=== PATIENT | female | born 1940 | race African-American/Black ===

== ENCOUNTER 2019-07-19 22:38 | Inpatient (IN) | payer MEDICARE, MEDICAID ==
[~2019-07-19] VITALS: Ht 162.6 cm; Wt 64.0 kg
[2019-07-19 20:20] VITALS: BP 138/82
[~2019-07-19 22:38] MED LIST: AMLO10TA80
[2019-07-19] MEDS ORDERED: DEXTROSE 50% WATER 50ML SYRINGE IV PRN (23:00)
[2019-07-19] MEDS ORDERED: ONDANSETRON HCL 4MG/2ML INJ IV PRN (23:15)
[2019-07-19] MEDS ORDERED: CLONIDINE 0.1MG TABLET PO PRN (23:15)
[2019-07-19] MEDS ORDERED: ACETAMINOPHEN 325MG TABLET PO PRN (23:15)
[2019-07-19] MEDS ORDERED: ALBUTEROL (0.083%) 2.5MG/3ML NEB HHN PRN (23:15)
[2019-07-19 23:22] VITALS: BP 138/82
[2019-07-19] MEDS ORDERED: CARV6.2548 MT (23:44)
[2019-07-19] MEDS ORDERED: FAMO20TA8 PO (23:44)
[2019-07-19] MEDS ORDERED: CLON0.1T PO (23:44)
[2019-07-19] MEDS ORDERED: HYDR-4134 PO (23:44)
[2019-07-19] MEDS ORDERED: ALBU05 IH (23:44)
[2019-07-19] MEDS ORDERED: ACET-2853 PO (23:44)
[2019-07-19] MEDS ORDERED: SUMA25TA9 PO (23:44)
[2019-07-20] VITALS (12 sets, daily range): BP systolic 115–149; BP diastolic 70–89
[2019-07-20] MEDS ORDERED: SUMATRIPTAN SUCCINATE 25MG TABLET PO PRN (05:00)
[2019-07-20] MEDS: BLOOD SUGAR DIAGNOSTIC STRIP TEST SCH ×5 (06:01→23:15)
[2019-07-20 06:43] LABS: BASOPHILS % 0.7 % (0.0-2.0); EOSINOPHILS % 1.9 % (0.0-5.0); HEMATOCRIT. 32.9 % (36.0-48.0); HEMOGLOBIN. 10.9 g/dL (12.0-16.0); LYMPHOCYTES % 11.3 % (20.0-50.0); MEAN CORPUSCULAR HEMOGLOBIN 29.8 pg (28.0-32.0); MEAN CORPUSCULAR VOLUME 89.8 fL (81.0-99.0); MEAN PLATELET VOLUME 9.7 fl (7.4-10.4); MONOCYTES % 11.1 % (2.0-8.0); PLATELET 335 x1000/uL (130-400); RED BLOOD CELL COUNT 3.67 mill/uL (4.2-5.4); RED CELL DISTRIBUTION WIDTH 15.4 % (11.6-14.6)
[2019-07-20 06:49] LABS: INR 1.1; PROTHROMBIN TIME 11.5 sec (9.6-11.0)
[2019-07-20] MEDS: AMLODIPINE 10MG TABLET PO SCH (08:58)
[2019-07-20] MEDS: CARVEDILOL 6.25 MG TABLET PO SCH ×2 (08:59→20:34)
[2019-07-20] MEDS ORDERED: HYDRALAZINE HCL 25MG TABLET PO SCH (09:00)
[2019-07-20] MEDS: ALBUTEROL (0.083%) 2.5MG/3ML NEB HHN SCH ×3 (09:14→20:00)
[2019-07-20] MEDS ORDERED: POTASSIUM CHLORIDE INJ 40 MEQ in DEXT 5% WATER 500 ML IV NR (12:00)
[2019-07-20] MEDS ORDERED: HYDROCODONE/ACETAMINOPHEN 5/325MG TABLET PO PRN (18:15)
[2019-07-20] MEDS ORDERED: DEXTROSE 50% WATER 50ML SYRINGE IV PRN (18:15)
[2019-07-20] MEDS ORDERED: HYDRALAZINE 20MG/ML VIAL IV PRN (18:15)
[2019-07-20 19:07] LABS: BG BASE EXCESS 3.7 mmol/L (-2.0-2.0); BG CARBOXYHEMOGLOBIN 0.3 % (0.5-1.5); BG FRACTION INSPIRED OXYGEN 30; BG HCO3 ACT 26.6 mmol/L (22.0-26.0); BG METHEMOGLOBIN 0.2 % (0.0-1.5); BG OXYHEMOGLOBIN 96.5 % (94.0-97.0); BG PCO2 34.3 mmHg (35.0-45.0); BG PH 7.508 (7.350-7.450); BG SAMPLE SITE RIGHT BRACHIAL; BG TOTAL HEMOGLOBIN 11.3 g/dL (12.0-18.0); BG VENT MODE NASAL CANNULA
[2019-07-20] MEDS: FAMOTIDINE 20MG TABLET PO SCH (20:34)
[2019-07-20] MEDS: HYDRALAZINE HCL 25MG TABLET PO SCH (20:38)
[2019-07-21] VITALS (23 sets, daily range): BP systolic 93–144; BP diastolic 58–88
[2019-07-21] MEDS: ALBUTEROL (0.083%) 2.5MG/3ML NEB HHN SCH ×6 (00:49→21:17)
[2019-07-21] MEDS: BLOOD SUGAR DIAGNOSTIC STRIP TEST SCH ×5 (04:31→20:23)
[2019-07-21 06:38] LABS: BASOPHILS % 0.9 % (0.0-2.0); EOSINOPHILS % 2.1 % (0.0-5.0); HEMATOCRIT. 33.5 % (36.0-48.0); LYMPHOCYTES % 9.3 % (20.0-50.0); MEAN CORPUSCULAR HEMOGLOBIN 29.9 pg (28.0-32.0); MEAN CORPUSCULAR VOLUME 90.8 fL (81.0-99.0); MEAN PLATELET VOLUME 10.1 fl (7.4-10.4); MONOCYTES % 9.9 % (2.0-8.0); NEUTROPHILS % 77.8 % (40.0-76.0); PLATELET 349 x1000/uL (130-400); RED BLOOD CELL COUNT 3.68 mill/uL (4.2-5.4); RED CELL DISTRIBUTION WIDTH 15.2 % (11.6-14.6)
[2019-07-21 06:45] LABS: CHLORIDE 111 mEq/L (98-107)
[2019-07-21 06:51] LABS: PHOSPHORUS 2.9 mg/dL (2.5-4.9)
[2019-07-21 06:54] LABS: T4 FREE 1.16 ng/dL (0.76-1.46)
[2019-07-21] MEDS: DEXT 5%/0.45% NACL 1000ML 1,000 ML IV SCH (09:12)
[2019-07-21] MEDS: AMLODIPINE 10MG TABLET PO SCH (09:12)
[2019-07-21] MEDS: DOCUSATE SODIUM SUGAR FREE 100MG/10ML UDC NG SCH (09:12)
[2019-07-21] MEDS: CARVEDILOL 6.25 MG TABLET PO SCH ×3 (09:13→21:00)
[2019-07-21] MEDS: HYDRALAZINE HCL 25MG TABLET PO SCH ×3 (09:13→21:00)
[2019-07-21] MEDS ORDERED: ENOXAPARIN 120MG/0.8ML SYR SUBCUT SCH (16:00)
[2019-07-21] MEDS: FAMOTIDINE 20MG TABLET PO SCH ×2 (20:50→21:00)
[2019-07-21 21:02] LABS: CLARITY URINE CLEAR (CLEAR); COLOR URINE YELLOW (YELLOW); KETONES URINE NEGATIVE (NEGATIVE); LEUKOCYTE ESTERASE URINE NEGATIVE (NEGATIVE); NITRITE URINE NEGATIVE (NEGATIVE); OCCULT BLOOD URINE TRACE (NEGATIVE); PROTEIN URINE 2+ (NEGATIVE); SPECIFIC GRAVITY URINE 1.017 (1.005-1.030); UROBILINOGEN URINE 0.2 E.U./dL (0.2-1.0)
[2019-07-21] MEDS ORDERED: METHYLPREDNISOLONE SOD SUCC 40 MG/ML VIAL IV NR (21:31)
[2019-07-21] MEDS: METHYLPREDNISOLONE SOD SUCC 40 MG/ML VIAL IV SCH (21:45)
[2019-07-21 21:49] LABS: BG BASE EXCESS -1.9 mmol/L (-2.0-2.0); BG CARBOXYHEMOGLOBIN 0.2 % (0.5-1.5); BG DEOXYHEMOGLOBIN 2.6 % (0.0-5.0); BG FRACTION INSPIRED OXYGEN 36; BG HCO3 ACT 23.5 mmol/L (22.0-26.0); BG METHEMOGLOBIN 0.3 % (0.0-1.5); BG OXYGEN SATURATION 97.4 % (92.0-98.5); BG OXYHEMOGLOBIN 96.9 % (94.0-97.0); BG PH 7.365 (7.350-7.450); BG PO2 101.1 mmHg (75.0-100.0); BG SAMPLE SITE RIGHT RADIAL; BG TOTAL HEMOGLOBIN 13.9 g/dL (12.0-18.0); BG VENT MODE NASAL CANNULA
[2019-07-22] VITALS (16 sets, daily range): BP systolic 109–133; BP diastolic 58–81
[2019-07-22] MEDS: BLOOD SUGAR DIAGNOSTIC STRIP TEST SCH ×6 (00:23→20:43)
[2019-07-22] MEDS: ALBUTEROL (0.083%) 2.5MG/3ML NEB HHN SCH ×6 (00:39→21:12)
[2019-07-22] MEDS: DEXT 5%/0.45% NACL 1000ML 1,000 ML IV SCH (04:45)
[2019-07-22 06:46] LABS: HEMATOCRIT 34.4 % (36.0-48.0); HEMOGLOBIN 11.3 g/dL (12.0-16.0); MEAN CORPUSCULAR HEMOGLOBIN 29.8 pg (28.0-32.0); MEAN CORPUSCULAR VOLUME 90.8 fL (81.0-99.0); PLATELET 311 x1000/uL (130-400); RED BLOOD CELL COUNT 3.78 mill/uL (4.2-5.4); RED CELL DISTRIBUTION WIDTH 15.9 % (11.6-14.6)
[2019-07-22] MEDS: DOCUSATE SODIUM SUGAR FREE 100MG/10ML UDC NG SCH (09:26)
[2019-07-22] MEDS: METHYLPREDNISOLONE SOD SUCC 40 MG/ML VIAL IV SCH ×2 (09:26→20:42)
[2019-07-22] MEDS: CARVEDILOL 6.25 MG TABLET PO SCH ×2 (09:27→20:42)
[2019-07-22] MEDS: HYDRALAZINE HCL 25MG TABLET PO SCH ×2 (09:27→22:07)
[2019-07-22] MEDS: AMLODIPINE 10MG TABLET PO SCH (09:28)
[2019-07-22] MEDS: ENOXAPARIN 60MG/0.6ML SYR SUBCUT SCH (18:37)
[2019-07-22] MEDS: FAMOTIDINE 20MG TABLET PO SCH (20:53)
[2019-07-23] VITALS (19 sets, daily range): BP systolic 103–131; BP diastolic 58–82
[2019-07-23] MEDS: DEXT 5%/0.45% NACL 1000ML 1,000 ML IV SCH (00:05)
[2019-07-23] MEDS: BLOOD SUGAR DIAGNOSTIC STRIP TEST SCH ×6 (00:07→20:07)
[2019-07-23] MEDS: ALBUTEROL (0.083%) 2.5MG/3ML NEB HHN SCH ×6 (00:30→21:34)
[2019-07-23 06:41] LABS: VITAMIN B12 SERUM >2000 pg/mL pg/mL (211-911)
[2019-07-23] MEDS: METHYLPREDNISOLONE SOD SUCC 40 MG/ML VIAL IV SCH ×2 (08:48→21:55)
[2019-07-23] MEDS: AMLODIPINE 10MG TABLET PO SCH (08:49)
[2019-07-23] MEDS: HYDRALAZINE HCL 25MG TABLET PO SCH ×2 (08:49→21:55)
[2019-07-23] MEDS: DOCUSATE SODIUM SUGAR FREE 100MG/10ML UDC NG SCH (08:51)
[2019-07-23] MEDS: CARVEDILOL 6.25 MG TABLET PO SCH ×2 (09:29→21:00)
[2019-07-23] MEDS: ENOXAPARIN 60MG/0.6ML SYR SUBCUT SCH (17:43)
[2019-07-23] MEDS: FAMOTIDINE 20MG TABLET PO SCH (21:55)
[2019-07-24] VITALS (13 sets, daily range): BP systolic 110–135; BP diastolic 64–80
[2019-07-24] MEDS: BLOOD SUGAR DIAGNOSTIC STRIP TEST SCH ×6 (00:34→20:00)
[2019-07-24] MEDS: ALBUTEROL (0.083%) 2.5MG/3ML NEB HHN SCH ×6 (01:28→20:56)
[2019-07-24] MEDS: DEXT 5%/0.45% NACL 1000ML 1,000 ML IV SCH (01:54)
[2019-07-24] MEDS: DOCUSATE SODIUM SUGAR FREE 100MG/10ML UDC NG SCH (09:02)
[2019-07-24] MEDS: METHYLPREDNISOLONE SOD SUCC 40 MG/ML VIAL IV SCH (09:02)
[2019-07-24] MEDS: HYDRALAZINE HCL 25MG TABLET PO SCH ×2 (09:06→21:19)
[2019-07-24] MEDS: AMLODIPINE 10MG TABLET PO SCH (09:06)
[2019-07-24] MEDS: CARVEDILOL 6.25 MG TABLET PO SCH ×2 (09:50→21:18)
[2019-07-24 13:19] LABS: HEMATOCRIT 32.6 % (36.0-48.0); HEMOGLOBIN 10.8 g/dL (12.0-16.0); MEAN CORPUSCULAR HEMOGLOBIN 30.3 pg (28.0-32.0); MEAN CORPUSCULAR VOLUME 90.9 fL (81.0-99.0); PLATELET 328 x1000/uL (130-400); RED BLOOD CELL COUNT 3.58 mill/uL (4.2-5.4); RED CELL DISTRIBUTION WIDTH 15.8 % (11.6-14.6)
[2019-07-24 13:28] LABS: PROTHROMBIN TIME 10.7 sec (9.6-11.0)
[2019-07-24] MEDS: ENOXAPARIN 60MG/0.6ML SYR SUBCUT SCH (18:39)
[2019-07-24] MEDS: FAMOTIDINE 20MG TABLET PO SCH (21:18)
[2019-07-25] VITALS: BP 127/73
[2019-07-25] MEDS: ALBUTEROL (0.083%) 2.5MG/3ML NEB HHN SCH ×6 (00:38→20:49)
[2019-07-25 04:00] VITALS: BP 133/80
[2019-07-25] MEDS: BLOOD SUGAR DIAGNOSTIC STRIP TEST SCH ×6 (04:49→20:11)
[2019-07-25 07:21] LABS: BASOPHILS % 0.4 % (0.0-2.0); HEMATOCRIT. 36.3 % (36.0-48.0); HEMOGLOBIN. 11.9 g/dL (12.0-16.0); LYMPHOCYTES % 8.8 % (20.0-50.0); MEAN CORPUSCULAR HEMOGLOBIN 29.7 pg (28.0-32.0); MEAN CORPUSCULAR VOLUME 90.8 fL (81.0-99.0); MEAN PLATELET VOLUME 10.3 fl (7.4-10.4); MONOCYTES % 9.4 % (2.0-8.0); NEUTROPHILS % 81.4 % (40.0-76.0); PLATELET 354 x1000/uL (130-400); RED CELL DISTRIBUTION WIDTH 15.7 % (11.6-14.6)
[2019-07-25 08:00] VITALS: BP 130/94
[2019-07-25] MEDS: DOCUSATE SODIUM SUGAR FREE 100MG/10ML UDC NG SCH (09:00)
[2019-07-25] MEDS: CARVEDILOL 6.25 MG TABLET PO SCH ×2 (09:00→20:28)
[2019-07-25] MEDS: HYDRALAZINE HCL 25MG TABLET PO SCH ×2 (09:00→20:28)
[2019-07-25] MEDS: AMLODIPINE 10MG TABLET PO SCH (09:00)
[2019-07-25] MEDS: DEXT 5%/0.45% NACL 1000ML 1,000 ML IV SCH (10:07)
[2019-07-25] MEDS: METHYLPREDNISOLONE SOD SUCC 40 MG/ML VIAL IV SCH (10:51)
[2019-07-25] MEDS ORDERED: FUROSEMIDE 40MG/4ML VIAL IVP NR (12:15)
[2019-07-25 13:58] LABS: BG BASE EXCESS -0.3 mmol/L (-2.0-2.0); BG CARBOXYHEMOGLOBIN 0.1 % (0.5-1.5); BG DEOXYHEMOGLOBIN 3.6 % (0.0-5.0); BG FRACTION INSPIRED OXYGEN 28; BG HCO3 ACT 24.4 mmol/L (22.0-26.0); BG METHEMOGLOBIN 0.3 % (0.0-1.5); BG OXYGEN SATURATION 96.4 % (92.0-98.5); BG PH 7.403 (7.350-7.450); BG PO2 85.7 mmHg (75.0-100.0); BG SAMPLE SITE LEFT RADIAL; BG TOTAL HEMOGLOBIN 12.3 g/dL (12.0-18.0); BG VENT MODE NASAL CANNULA
[2019-07-25 16:15] VITALS: BP 132/87
[2019-07-25 18:00] VITALS: BP 115/61
[2019-07-25] MEDS: ENOXAPARIN 60MG/0.6ML SYR SUBCUT SCH (18:22)
[2019-07-25 19:58] VITALS: BP 119/80
[2019-07-25] MEDS: FAMOTIDINE 20MG TABLET PO SCH (20:29)
[2019-07-26] VITALS (8 sets, daily range): BP systolic 105–148; BP diastolic 72–93
[2019-07-26] MEDS: ALBUTEROL (0.083%) 2.5MG/3ML NEB HHN SCH ×7 (00:27→23:49)
[2019-07-26] MEDS: BLOOD SUGAR DIAGNOSTIC STRIP TEST SCH ×6 (04:00→20:11)
[2019-07-26 07:10] LABS: HEMATOCRIT 36.3 % (36.0-48.0); HEMOGLOBIN 11.8 g/dL (12.0-16.0); MEAN CORPUSCULAR HEMOGLOBIN 29.8 pg (28.0-32.0); MEAN CORPUSCULAR VOLUME 91.6 fL (81.0-99.0); PLATELET 304 x1000/uL (130-400); RED BLOOD CELL COUNT 3.96 mill/uL (4.2-5.4); RED CELL DISTRIBUTION WIDTH 15.8 % (11.6-14.6)
[2019-07-26] MEDS: DOCUSATE SODIUM SUGAR FREE 100MG/10ML UDC NG SCH (08:20)
[2019-07-26] MEDS: HYDRALAZINE HCL 25MG TABLET PO SCH ×2 (08:20→20:11)
[2019-07-26] MEDS: AMLODIPINE 10MG TABLET PO SCH (08:20)
[2019-07-26] MEDS: CARVEDILOL 6.25 MG TABLET PO SCH ×2 (08:20→20:10)
[2019-07-26] MEDS: METHYLPREDNISOLONE SOD SUCC 40 MG/ML VIAL IV SCH (08:21)
[2019-07-26 09:10] LABS: BG BASE EXCESS 0.5 mmol/L (-2.0-2.0); BG BILEVEL POS AIRWAY PRESSURE 15/5; BG CARBOXYHEMOGLOBIN 0.3 % (0.5-1.5); BG FRACTION INSPIRED OXYGEN 30; BG HCO3 ACT 25.2 mmol/L (22.0-26.0); BG METHEMOGLOBIN 0.3 % (0.0-1.5); BG OXYHEMOGLOBIN 96.4 % (94.0-97.0); BG PCO2 40.5 mmHg (35.0-45.0); BG PH 7.411 (7.350-7.450); BG PO2 91.6 mmHg (75.0-100.0); BG SAMPLE SITE RIGHT RADIAL; BG TOTAL HEMOGLOBIN 11.6 g/dL (12.0-18.0); BG VENT MODE MASK - BIPAP; BG VENT RATE 16 set
[2019-07-26] MEDS: DEXTROSE 5% WATER 1,000 ML IV SCH (16:43)
[2019-07-26] MEDS: ENOXAPARIN 60MG/0.6ML SYR SUBCUT SCH (17:20)
[2019-07-26] MEDS: FAMOTIDINE 20MG TABLET PO SCH (20:11)
[2019-07-27] VITALS (13 sets, daily range): BP systolic 117–140; BP diastolic 77–97
[2019-07-27] MEDS: BLOOD SUGAR DIAGNOSTIC STRIP TEST SCH ×6 (00:33→20:00)
[2019-07-27] MEDS: ALBUTEROL (0.083%) 2.5MG/3ML NEB HHN SCH ×5 (04:23→20:13)
[2019-07-27 06:14] LABS: HEMATOCRIT 36.1 % (36.0-48.0); HEMOGLOBIN 11.7 g/dL (12.0-16.0); MEAN CORPUSCULAR HEMOGLOBIN 29.4 pg (28.0-32.0); MEAN CORPUSCULAR VOLUME 90.6 fL (81.0-99.0); PLATELET 312 x1000/uL (130-400); RED BLOOD CELL COUNT 3.99 mill/uL (4.2-5.4); RED CELL DISTRIBUTION WIDTH 15.9 % (11.6-14.6)
[2019-07-27] MEDS: AMLODIPINE 10MG TABLET PO SCH (09:00)
[2019-07-27] MEDS: CARVEDILOL 6.25 MG TABLET PO SCH ×2 (09:00→21:38)
[2019-07-27] MEDS: DOCUSATE SODIUM SUGAR FREE 100MG/10ML UDC NG SCH (09:00)
[2019-07-27] MEDS: HYDRALAZINE HCL 25MG TABLET PO SCH ×2 (09:00→21:37)
[2019-07-27] MEDS: METHYLPREDNISOLONE SOD SUCC 40 MG/ML VIAL IV SCH (09:27)
[2019-07-27] MEDS: DEXTROSE 5% WATER 1,000 ML IV SCH (11:15)
[2019-07-27] MEDS: ENOXAPARIN 60MG/0.6ML SYR SUBCUT SCH (18:00)
[2019-07-27] MEDS: FAMOTIDINE 20MG TABLET PO SCH (21:37)
[2019-07-28] VITALS (11 sets, daily range): BP systolic 106–141; BP diastolic 70–92
[2019-07-28] MEDS: ALBUTEROL (0.083%) 2.5MG/3ML NEB HHN SCH ×6 (00:25→20:53)
[2019-07-28 05:41] LABS: HEMATOCRIT 34.5 % (36.0-48.0); HEMOGLOBIN 11.4 g/dL (12.0-16.0); MEAN CORPUSCULAR HEMOGLOBIN 29.8 pg (28.0-32.0); MEAN CORPUSCULAR VOLUME 90.2 fL (81.0-99.0); PLATELET 288 x1000/uL (130-400); RED BLOOD CELL COUNT 3.83 mill/uL (4.2-5.4); RED CELL DISTRIBUTION WIDTH 15.6 % (11.6-14.6)
[2019-07-28] MEDS: CARVEDILOL 6.25 MG TABLET PO SCH ×2 (08:15→20:26)
[2019-07-28] MEDS: AMLODIPINE 10MG TABLET PO SCH (08:15)
[2019-07-28] MEDS: METHYLPREDNISOLONE SOD SUCC 40 MG/ML VIAL IV SCH (08:15)
[2019-07-28] MEDS: HYDRALAZINE HCL 25MG TABLET PO SCH ×2 (08:15→20:26)
[2019-07-28] MEDS: DOCUSATE SODIUM SUGAR FREE 100MG/10ML UDC NG SCH (08:15)
[2019-07-28] MEDS: BLOOD SUGAR DIAGNOSTIC STRIP TEST SCH ×4 (08:16→20:28)
[2019-07-28] MEDS ORDERED: MIDAZOLAM HCL 5 MG/5 ML VIAL ONE (10:53)
[2019-07-28] MEDS ORDERED: BACTERIOSTATIC SODIUM CHLORIDE 0.9% 30ML VIAL IJ ONE (10:53)
[2019-07-28] MEDS ORDERED: FENTANYL CITRATE/PF 50MCG/ML 2ML VIAL ONE (10:53)
[2019-07-28] MEDS ORDERED: MIDAZOLAM HCL 5 MG/5 ML VIAL IV PRN (11:15)
[2019-07-28] MEDS: DEXTROSE 5% WATER 1,000 ML IV SCH (11:15)
[2019-07-28] MEDS ORDERED: CEFAZOLIN 1000MG PREMIX 50 ML IV ONE (11:19)
[2019-07-28] MEDS ORDERED: CEFAZOLIN 1000MG PREMIX 50 ML IV SCH (11:20)
[2019-07-28] MEDS: ENOXAPARIN 60MG/0.6ML SYR SUBCUT SCH (18:36)
[2019-07-28] MEDS: FAMOTIDINE 20MG TABLET PO SCH (20:28)
[2019-07-29] VITALS (12 sets, daily range): BP systolic 101–128; BP diastolic 61–94
[2019-07-29] MEDS: ALBUTEROL (0.083%) 2.5MG/3ML NEB HHN SCH ×6 (00:27→21:31)
[2019-07-29 07:24] LABS: HEMOGLOBIN 11.5 g/dL (12.0-16.0); MEAN CORPUSCULAR HEMOGLOBIN 29.8 pg (28.0-32.0); MEAN CORPUSCULAR VOLUME 90.9 fL (81.0-99.0); PLATELET 272 x1000/uL (130-400); RED BLOOD CELL COUNT 3.85 mill/uL (4.2-5.4); RED CELL DISTRIBUTION WIDTH 16.1 % (11.6-14.6)
[2019-07-29] MEDS: HYDRALAZINE HCL 25MG TABLET PO SCH ×2 (08:15→20:29)
[2019-07-29] MEDS: BLOOD SUGAR DIAGNOSTIC STRIP TEST SCH ×2 (08:15→11:29)
[2019-07-29] MEDS: AMLODIPINE 10MG TABLET PO SCH (08:16)
[2019-07-29] MEDS: CARVEDILOL 6.25 MG TABLET PO SCH ×2 (08:16→20:29)
[2019-07-29] MEDS: METHYLPREDNISOLONE SOD SUCC 40 MG/ML VIAL IV SCH (08:17)
[2019-07-29] MEDS: DOCUSATE SODIUM SUGAR FREE 100MG/10ML UDC NG SCH (08:17)
[2019-07-29] MEDS ORDERED: POTASSIUM CHLORIDE 20MEQ/PACKET GT NR (11:00)
[2019-07-29] MEDS: DEXTROSE 5% WATER 1,000 ML IV SCH (11:35)
[2019-07-29] MEDS: ENOXAPARIN 60MG/0.6ML SYR SUBCUT SCH (17:26)
[2019-07-29] MEDS: FAMOTIDINE 20MG TABLET PO SCH (20:53)
[2019-07-30] VITALS (12 sets, daily range): BP systolic 105–143; BP diastolic 65–92
[2019-07-30] MEDS: ALBUTEROL (0.083%) 2.5MG/3ML NEB HHN SCH ×6 (01:19→20:56)
[2019-07-30] MEDS: CARVEDILOL 6.25 MG TABLET PO SCH ×2 (08:01→20:17)
[2019-07-30] MEDS: HYDRALAZINE HCL 25MG TABLET PO SCH ×2 (08:01→20:25)
[2019-07-30] MEDS: METHYLPREDNISOLONE SOD SUCC 40 MG/ML VIAL IV SCH (08:01)
[2019-07-30] MEDS: DOCUSATE SODIUM SUGAR FREE 100MG/10ML UDC NG SCH (08:01)
[2019-07-30] MEDS: AMLODIPINE 10MG TABLET PO SCH (08:02)
[2019-07-30] MEDS: LACTULOSE 20G/30ML UDC PO PRN (18:05)
[2019-07-30] MEDS: ENOXAPARIN 60MG/0.6ML SYR SUBCUT SCH (18:05)
[2019-07-30] MEDS ORDERED: BISACODYL 10MG SUPP PR NR (18:30)
[2019-07-30 19:08] LABS: BG CARBOXYHEMOGLOBIN 0.3 % (0.5-1.5); BG DEOXYHEMOGLOBIN 1.9 % (0.0-5.0); BG FRACTION INSPIRED OXYGEN 28; BG HCO3 ACT 24.9 mmol/L (22.0-26.0); BG METHEMOGLOBIN 0.4 % (0.0-1.5); BG OXYGEN SATURATION 98.1 % (92.0-98.5); BG OXYHEMOGLOBIN 97.4 % (94.0-97.0); BG PCO2 41.5 mmHg (35.0-45.0); BG PH 7.396 (7.350-7.450); BG PO2 116.1 mmHg (75.0-100.0); BG SAMPLE SITE LEFT RADIAL; BG TOTAL HEMOGLOBIN 12.6 g/dL (12.0-18.0); BG VENT MODE NASAL CANNULA
[2019-07-30] MEDS: FAMOTIDINE 20MG TABLET PO SCH (20:17)
[2019-07-30] MEDS ORDERED: LACTULOSE 20G/30ML UDC GT NR (21:00)
[2019-07-31] VITALS (13 sets, daily range): BP systolic 105–147; BP diastolic 66–100
[2019-07-31] MEDS: ALBUTEROL (0.083%) 2.5MG/3ML NEB HHN SCH ×6 (01:12→21:26)
[2019-07-31 06:59] LABS: HEMATOCRIT 39.9 % (36.0-48.0); MEAN CORPUSCULAR HEMOGLOBIN 29.9 pg (28.0-32.0); MEAN CORPUSCULAR VOLUME 91.6 fL (81.0-99.0); PLATELET 284 x1000/uL (130-400); RED BLOOD CELL COUNT 4.35 mill/uL (4.2-5.4); RED CELL DISTRIBUTION WIDTH 15.7 % (11.6-14.6)
[2019-07-31] MEDS: METHYLPREDNISOLONE SOD SUCC 40 MG/ML VIAL IV SCH (08:46)
[2019-07-31] MEDS: CARVEDILOL 6.25 MG TABLET PO SCH ×2 (08:46→21:21)
[2019-07-31] MEDS: HYDRALAZINE HCL 25MG TABLET PO SCH ×2 (08:46→21:21)
[2019-07-31] MEDS: AMLODIPINE 10MG TABLET PO SCH ×2 (08:58→09:00)
[2019-07-31] MEDS: DOCUSATE SODIUM SUGAR FREE 100MG/10ML UDC NG SCH (09:00)
[2019-07-31] MEDS ORDERED: POTASSIUM CHLORIDE 20MEQ TABLET SR PO NR (13:11)
[2019-07-31 15:24] LABS: BG BASE EXCESS -0.4 mmol/L (-2.0-2.0); BG DEOXYHEMOGLOBIN 5.9 % (0.0-5.0); BG FRACTION INSPIRED OXYGEN 21; BG HCO3 ACT 22.9 mmol/L (22.0-26.0); BG METHEMOGLOBIN 0.3 % (0.0-1.5); BG OXYGEN SATURATION 94.1 % (92.0-98.5); BG OXYHEMOGLOBIN 93.8 % (94.0-97.0); BG PCO2 33.2 mmHg (35.0-45.0); BG PH 7.456 (7.350-7.450); BG PO2 66.2 mmHg (75.0-100.0); BG SAMPLE SITE RIGHT RADIAL; BG TOTAL HEMOGLOBIN 12.8 g/dL (12.0-18.0); BG VENT MODE ROOM AIR
[2019-07-31] MEDS: ENOXAPARIN 60MG/0.6ML SYR SUBCUT SCH (17:20)
[2019-07-31] MEDS: FAMOTIDINE 20MG TABLET PO SCH (21:21)
[2019-08-01] VITALS (13 sets, daily range): BP systolic 96–126; BP diastolic 48–83
[2019-08-01] MEDS: ALBUTEROL (0.083%) 2.5MG/3ML NEB HHN SCH ×6 (00:47→21:14)
[2019-08-01] MEDS: METHYLPREDNISOLONE SOD SUCC 40 MG/ML VIAL IV SCH (08:31)
[2019-08-01] MEDS: HYDRALAZINE HCL 25MG TABLET PO SCH ×2 (08:31→20:45)
[2019-08-01] MEDS: CARVEDILOL 6.25 MG TABLET PO SCH ×2 (08:31→20:45)
[2019-08-01] MEDS: DOCUSATE SODIUM SUGAR FREE 100MG/10ML UDC NG SCH (08:32)
[2019-08-01] MEDS: AMLODIPINE 10MG TABLET PO SCH (08:32)
[2019-08-01] MEDS: ENOXAPARIN 60MG/0.6ML SYR SUBCUT SCH (17:55)
[2019-08-01] MEDS: FAMOTIDINE 20MG TABLET PO SCH (20:44)
[2019-08-02] VITALS (11 sets, daily range): BP systolic 101–143; BP diastolic 60–89
[2019-08-02] MEDS: ALBUTEROL (0.083%) 2.5MG/3ML NEB HHN SCH ×6 (00:24→21:30)
[2019-08-02] MEDS: LACTULOSE 20G/30ML UDC PO PRN (06:21)
[2019-08-02] MEDS: DOCUSATE SODIUM SUGAR FREE 100MG/10ML UDC NG SCH (08:47)
[2019-08-02] MEDS: METHYLPREDNISOLONE SOD SUCC 40 MG/ML VIAL IV SCH (08:47)
[2019-08-02] MEDS: HYDRALAZINE HCL 25MG TABLET PO SCH ×2 (08:47→20:26)
[2019-08-02] MEDS: AMLODIPINE 10MG TABLET PO SCH (08:48)
[2019-08-02] MEDS: CARVEDILOL 6.25 MG TABLET PO SCH ×2 (08:48→20:27)
[2019-08-02] MEDS: APIXABAN 5 MG TABLET PO SCH (18:04)
[2019-08-02] MEDS: FAMOTIDINE 20MG TABLET PO SCH (20:26)
[2019-08-03] VITALS (12 sets, daily range): BP systolic 109–169; BP diastolic 47–93
[2019-08-03] MEDS: ALBUTEROL (0.083%) 2.5MG/3ML NEB HHN SCH ×6 (01:30→20:31)
[2019-08-03 07:11] LABS: HEMATOCRIT 36.7 % (36.0-48.0); HEMOGLOBIN 11.8 g/dL (12.0-16.0); MEAN CORPUSCULAR HEMOGLOBIN 29.5 pg (28.0-32.0); MEAN CORPUSCULAR VOLUME 91.6 fL (81.0-99.0); PLATELET 213 x1000/uL (130-400); RED CELL DISTRIBUTION WIDTH 16.5 % (11.6-14.6)
[2019-08-03] MEDS: DOCUSATE SODIUM SUGAR FREE 100MG/10ML UDC NG SCH (08:32)
[2019-08-03] MEDS: CARVEDILOL 6.25 MG TABLET PO SCH ×2 (08:32→20:12)
[2019-08-03] MEDS: AMLODIPINE 10MG TABLET PO SCH (08:32)
[2019-08-03] MEDS: PREDNISONE 20MG TABLET PO SCH (08:33)
[2019-08-03] MEDS: APIXABAN 5 MG TABLET PO SCH ×2 (08:33→17:32)
[2019-08-03] MEDS: HYDRALAZINE HCL 25MG TABLET PO SCH ×2 (08:33→20:11)
[2019-08-03] MEDS: DEXTROSE 5% WATER 1,000 ML IV SCH ×2 (11:22→15:11)
[2019-08-03] MEDS: FAMOTIDINE 20MG TABLET PO SCH (20:11)
[2019-08-04] VITALS (13 sets, daily range): BP systolic 83–132; BP diastolic 54–86
[2019-08-04] MEDS: ALBUTEROL (0.083%) 2.5MG/3ML NEB HHN SCH ×6 (01:11→20:31)
[2019-08-04] MEDS: DEXTROSE 5% WATER 1,000 ML IV SCH ×2 (05:52→20:58)
[2019-08-04 06:13] LABS: HEMOGLOBIN 11.5 g/dL (12.0-16.0); MEAN CORPUSCULAR HEMOGLOBIN 29.6 pg (28.0-32.0); PLATELET 202 x1000/uL (130-400); RED BLOOD CELL COUNT 3.91 mill/uL (4.2-5.4); RED CELL DISTRIBUTION WIDTH 16.3 % (11.6-14.6)
[2019-08-04] MEDS: PREDNISONE 20MG TABLET PO SCH (08:30)
[2019-08-04] MEDS: DOCUSATE SODIUM SUGAR FREE 100MG/10ML UDC NG SCH (08:30)
[2019-08-04] MEDS: APIXABAN 5 MG TABLET PO SCH ×2 (08:31→17:29)
[2019-08-04] MEDS: CARVEDILOL 6.25 MG TABLET PO SCH ×2 (08:32→20:53)
[2019-08-04] MEDS: AMLODIPINE 10MG TABLET PO SCH (08:32)
[2019-08-04] MEDS: HYDRALAZINE HCL 25MG TABLET PO SCH ×2 (08:32→20:53)
[2019-08-04] MEDS ORDERED: POTASSIUM CHLORIDE 20MEQ/PACKET PO NR (15:30)
[2019-08-04] MEDS ORDERED: ATOR80TA PO ×2 (18:37→18:41)
[2019-08-04] MEDS ORDERED: POTA20TA82 PO ×2 (18:37→18:41)
[2019-08-04] MEDS ORDERED: HYDR-4135 PO (18:40)
[2019-08-04] MEDS ORDERED: AMLO10TA80 PO (18:40)
[2019-08-04] MEDS ORDERED: XALAO EACHEYE (18:40)
[2019-08-04] MEDS ORDERED: ISOS30TA6 PO (18:40)
[2019-08-04] MEDS ORDERED: BENA20TA10 PO (18:41)
[2019-08-04] MEDS: FAMOTIDINE 20MG TABLET PO SCH (20:59)
[2019-08-05] VITALS (9 sets, daily range): BP systolic 90–130; BP diastolic 43–78
[2019-08-05] MEDS: ALBUTEROL (0.083%) 2.5MG/3ML NEB HHN SCH ×5 (04:45→20:53)
[2019-08-05] MEDS: APIXABAN 5 MG TABLET PO SCH ×2 (08:57→17:45)
[2019-08-05] MEDS: PREDNISONE 20MG TABLET PO SCH (08:57)
[2019-08-05] MEDS: CARVEDILOL 6.25 MG TABLET PO SCH ×2 (09:00→20:43)
[2019-08-05] MEDS: AMLODIPINE 10MG TABLET PO SCH (09:00)
[2019-08-05] MEDS: HYDRALAZINE HCL 25MG TABLET PO SCH ×2 (09:00→20:43)
[2019-08-05] MEDS: DOCUSATE SODIUM SUGAR FREE 100MG/10ML UDC NG SCH (11:07)
[2019-08-05] MEDS: DEXTROSE 5% WATER 1,000 ML IV SCH (13:47)
[2019-08-05] MEDS: LACTULOSE 20G/30ML UDC PO PRN (20:42)
[2019-08-05] MEDS: FAMOTIDINE 20MG TABLET PO SCH (20:43)
[2019-08-06] VITALS: BP 105/78
[2019-08-06] MEDS: ALBUTEROL (0.083%) 2.5MG/3ML NEB HHN SCH ×6 (01:20→21:39)
[2019-08-06 04:00] VITALS: BP 109/76
[2019-08-06] MEDS: DEXTROSE 5% WATER 1,000 ML IV SCH (09:14)
[2019-08-06] MEDS: DOCUSATE SODIUM SUGAR FREE 100MG/10ML UDC NG SCH (09:15)
[2019-08-06] MEDS: HYDRALAZINE HCL 25MG TABLET PO SCH ×2 (09:15→21:40)
[2019-08-06] MEDS: CARVEDILOL 6.25 MG TABLET PO SCH ×2 (09:16→21:41)
[2019-08-06] MEDS: AMLODIPINE 10MG TABLET PO SCH (09:16)
[2019-08-06] MEDS: APIXABAN 5 MG TABLET PO SCH ×2 (09:18→17:40)
[2019-08-06] MEDS: PREDNISONE 20MG TABLET PO SCH (09:18)
[2019-08-06] MEDS ORDERED: HYDRALAZINE 10 MG in SODIUM CHLORIDE 0.9% 49.5 ML IV PRN (15:00)
[2019-08-06 20:00] VITALS: BP 121/77
[2019-08-06] MEDS: FAMOTIDINE 20MG TABLET PO SCH (21:40)
[2019-08-06] MEDS: LACTULOSE 20G/30ML UDC PO PRN (21:41)
[2019-08-07] VITALS: BP 114/82
[2019-08-07] MEDS: ALBUTEROL (0.083%) 2.5MG/3ML NEB HHN SCH ×6 (00:37→20:12)
[2019-08-07] MEDS: DEXTROSE 5% WATER 1,000 ML IV SCH ×2 (01:21→15:00)
[2019-08-07 04:00] VITALS: BP 120/79
[2019-08-07 08:00] VITALS: BP 111/82
[2019-08-07] MEDS: DOCUSATE SODIUM SUGAR FREE 100MG/10ML UDC NG SCH (09:10)
[2019-08-07] MEDS: CARVEDILOL 6.25 MG TABLET PO SCH ×2 (09:11→20:40)
[2019-08-07] MEDS: HYDRALAZINE HCL 25MG TABLET PO SCH ×2 (09:11→20:39)
[2019-08-07] MEDS: AMLODIPINE 10MG TABLET PO SCH (09:11)
[2019-08-07] MEDS: PREDNISONE 10MG TABLET PO SCH (09:11)
[2019-08-07] MEDS: APIXABAN 5 MG TABLET PO SCH ×2 (09:12→17:10)
[2019-08-07 16:00] VITALS: BP 98/68
[2019-08-07 20:00] VITALS: BP 108/71
[2019-08-07] MEDS: FAMOTIDINE 20MG TABLET PO SCH (20:39)
[2019-08-08] VITALS: BP 110/72
[2019-08-08] MEDS: ALBUTEROL (0.083%) 2.5MG/3ML NEB HHN SCH ×6 (01:18→20:01)
[2019-08-08 04:00] VITALS: BP 107/68
[2019-08-08] MEDS: DEXTROSE 5% WATER 1,000 ML IV SCH (06:31)
[2019-08-08] MEDS: AMLODIPINE 10MG TABLET PO SCH (09:00)
[2019-08-08] MEDS: CARVEDILOL 6.25 MG TABLET PO SCH ×2 (09:00→21:50)
[2019-08-08] MEDS: HYDRALAZINE HCL 25MG TABLET PO SCH ×2 (09:00→21:51)
[2019-08-08] MEDS: PREDNISONE 10MG TABLET PO SCH (09:16)
[2019-08-08] MEDS: DOCUSATE SODIUM SUGAR FREE 100MG/10ML UDC NG SCH (09:16)
[2019-08-08] MEDS: APIXABAN 5 MG TABLET PO SCH ×2 (09:16→16:44)
[2019-08-08 17:33] LABS: BG BASE EXCESS -0.1 mmol/L (-2.0-2.0); BG CARBOXYHEMOGLOBIN 0.4 % (0.5-1.5); BG DEOXYHEMOGLOBIN 3.7 % (0.0-5.0); BG HCO3 ACT 21.1 mmol/L (22.0-26.0); BG METHEMOGLOBIN 0.2 % (0.0-1.5); BG OXYGEN SATURATION 96.3 % (92.0-98.5); BG OXYHEMOGLOBIN 95.7 % (94.0-97.0); BG PCO2 25.4 mmHg (35.0-45.0); BG PH 7.537 (7.350-7.450); BG PO2 75.9 mmHg (75.0-100.0); BG SAMPLE SITE RIGHT BRACHIAL; BG TOTAL HEMOGLOBIN 12.9 g/dL (12.0-18.0); BG VENT MODE ROOM AIR
[2019-08-08 20:00] VITALS: BP 112/73
[2019-08-08 20:30] LABS: HEMATOCRIT 37.8 % (36.0-48.0); HEMOGLOBIN 12.4 g/dL (12.0-16.0); MEAN CORPUSCULAR HEMOGLOBIN 29.9 pg (28.0-32.0); MEAN CORPUSCULAR VOLUME 91.2 fL (81.0-99.0); PLATELET 180 x1000/uL (130-400); RED BLOOD CELL COUNT 4.15 mill/uL (4.2-5.4); RED CELL DISTRIBUTION WIDTH 15.7 % (11.6-14.6)
[2019-08-08] MEDS: FAMOTIDINE 20MG TABLET PO SCH (21:51)
[2019-08-09] VITALS: BP 128/86
[2019-08-09] MEDS: DEXTROSE 5% WATER 1,000 ML IV SCH ×2 (00:38→17:16)
[2019-08-09] MEDS: ALBUTEROL (0.083%) 2.5MG/3ML NEB HHN SCH ×6 (01:49→20:31)
[2019-08-09 04:00] VITALS: BP 109/71
[2019-08-09] MEDS: APIXABAN 5 MG TABLET PO SCH ×2 (09:08→17:16)
[2019-08-09] MEDS: DOCUSATE SODIUM SUGAR FREE 100MG/10ML UDC NG SCH (09:08)
[2019-08-09] MEDS: PREDNISONE 10MG TABLET PO SCH (09:08)
[2019-08-09] MEDS: HYDRALAZINE HCL 25MG TABLET PO SCH ×2 (09:20→21:33)
[2019-08-09] MEDS: AMLODIPINE 10MG TABLET PO SCH (09:20)
[2019-08-09] MEDS: CARVEDILOL 6.25 MG TABLET PO SCH ×2 (09:20→21:32)
[2019-08-09 20:00] VITALS: BP 132/73
[2019-08-09] MEDS: FAMOTIDINE 20MG TABLET PO SCH (21:32)
[2019-08-10] VITALS: BP 135/89
[2019-08-10] MEDS: ALBUTEROL (0.083%) 2.5MG/3ML NEB HHN SCH ×6 (00:24→20:05)
[2019-08-10] MEDS: DEXTROSE 5% WATER 1,000 ML IV SCH ×2 (03:36→03:39)
[2019-08-10 04:00] VITALS: BP 134/92
[2019-08-10 08:00] VITALS: BP 116/69
[2019-08-10] MEDS: HYDRALAZINE HCL 25MG TABLET PO SCH ×2 (08:34→20:39)
[2019-08-10] MEDS: AMLODIPINE 10MG TABLET PO SCH (08:34)
[2019-08-10] MEDS: APIXABAN 5 MG TABLET PO SCH ×2 (08:34→18:03)
[2019-08-10] MEDS: CARVEDILOL 6.25 MG TABLET PO SCH ×2 (08:34→20:39)
[2019-08-10] MEDS: PREDNISONE 10MG TABLET PO SCH (08:34)
[2019-08-10] MEDS: DOCUSATE SODIUM SUGAR FREE 100MG/10ML UDC NG SCH (08:34)
[2019-08-10 11:45] VITALS: BP 112/69
[2019-08-10 16:00] VITALS: BP 116/64
[2019-08-10 20:00] VITALS: BP 127/74
[2019-08-10] MEDS: FAMOTIDINE 20MG TABLET PO SCH (20:38)
[2019-08-11] VITALS: BP 125/75
[2019-08-11] MEDS: ALBUTEROL (0.083%) 2.5MG/3ML NEB HHN SCH ×4 (00:12→13:03)
[2019-08-11 04:00] VITALS: BP 135/81
[2019-08-11 08:00] VITALS: BP 131/64
[2019-08-11] MEDS: APIXABAN 5 MG TABLET PO SCH (09:46)
[2019-08-11] MEDS: DOCUSATE SODIUM SUGAR FREE 100MG/10ML UDC NG SCH (09:46)
[2019-08-11] MEDS: AMLODIPINE 10MG TABLET PO SCH (09:47)
[2019-08-11] MEDS: HYDRALAZINE HCL 25MG TABLET PO SCH (09:48)
[2019-08-11] MEDS: CARVEDILOL 6.25 MG TABLET PO SCH (09:48)
[2019-08-11 12:00] VITALS: BP 128/66
[2019-08-11 12:46] VITALS: BP 122/60
== END 2019-08-11 13:55 | disposition home or self-care (01) | DRG 469 ==
LOC: 5WST 22:38 → 3WST 07-20 01:40 → 6WST 07-24 16:50 → 5EST 07-25 16:24 → 6EST 08-05 14:55
PROVIDERS: ADMIT Internal Medicine; ATTEND Internal Medicine
PROC: 5A09357 Assistance with Respiratory Ventilation, Less than 24 Consecutive Hours, Continuous Positive Airway Pressure (ICD-10-PCS; 2019-07-25)
PROC: 0DH63UZ Insertion of Feeding Device into Stomach, Percutaneous Approach (ICD-10-PCS; principal; 2019-07-28)
DX: N17.9 Acute kidney failure, unspecified (principal); G93.40 Encephalopathy, unspecified; I50.23 Acute on chronic systolic (congestive) heart failure; E46 Unspecified protein-calorie malnutrition; J96.11 Chronic respiratory failure with hypoxia; E87.0 Hyperosmolality and hypernatremia; I48.0 Paroxysmal atrial fibrillation; D68.59 Other primary thrombophilia; I42.9 Cardiomyopathy, unspecified; K29.70 Gastritis, unspecified, without bleeding; R13.10 Dysphagia, unspecified; I13.0 Hypertensive heart and chronic kidney disease with heart failure and stage 1 through stage 4 chronic kidney disease, or unspecified chronic kidney disease; I48.92 Unspecified atrial flutter; D64.9 Anemia, unspecified; E86.0 Dehydration; E16.2 Hypoglycemia, unspecified; N18.9 Chronic kidney disease, unspecified; E87.6 Hypokalemia; F03.90 Unspecified dementia, unspecified severity, without behavioral disturbance, psychotic disturbance, mood disturbance, and anxiety; I25.10 Atherosclerotic heart disease of native coronary artery without angina pectoris; J98.11 Atelectasis; K44.9 Diaphragmatic hernia without obstruction or gangrene; R47.02 Dysphasia; R62.7 Adult failure to thrive; Z68.24 Body mass index [BMI] 24.0-24.9, adult; Z95.0 Presence of cardiac pacemaker; I69.30 Unspecified sequelae of cerebral infarction; Z88.5 Allergy status to narcotic agent
CPT/HCPCS: 36415; 36600; 71045; 74018; 80048; 80076; 81003; 82040; 82140; 82248; 82375; 82607; 82805; 82962; 83036; 83735; 84100; 84134; 84145; 84439; 84443; 85027; 86592; 93005; 93306; 94640; 94660; A6261; C1893; J0690; J1650; J2250; J2920; J3010; J3480; J3490; J7040; J7042; J7060; J7070; J7512; J7611; A4315